=== PATIENT | female | born 1980 | race African-American/Black ===

== ENCOUNTER 2017-03-06 08:06 | Emergency (ER) | payer MEDICAID, OTHER ==
[2017-03-06] MEDS ORDERED: NS 0.9% 1000 ML* 1,000 ML IV ONE (09:59)
[2017-03-06] MEDS ORDERED: HYDROmorphone INJ* 1 MG/ML CARPUJECT SYRINGE IV ONE (09:59)
[2017-03-06] MEDS ORDERED: Ondansetron INJ* 2 MG/ML VIAL IV ONE (09:59)
[2017-03-06 10:30] LABS: Hematocrit 44 % (35-47); Mean Corpuscular HGB Conc 34 g/dl (31-36); Mean Corpuscular Hemoglobin 33 pg (27-31); Mean Corpuscular Volume 97 fL (80-97); Mean Platelet Volume 7 um3 (7.4-10.4); Red Blood Count 4.53 10^6/ul (4.0-5.4); Red Cell Distribution Width 13 % (10.5-15); White Blood Count 10.7 10^3/ul (3.5-10.8)
[2017-03-06 10:40] LABS: Urine Bacteria Absent (Absent); Urine Bilirubin Negative (Negative); Urine Glucose Negative (Negative); Urine Nitrite Negative (Negative)
[2017-03-06 10:49] LABS: ALT 25 U/L (7-52); AST 22 U/L (13-39); Albumin 4.3 g/dL (3.2-5.2); Alkaline Phosphatase 92 U/L (34-104); Anion Gap 7 mmol/L (2-11); BUN/Creatinine Ratio 11.6 (8-20); Blood Urea Nitrogen 10 mg/dL (6-24); C Reactive Protein 6.95 mg/L (< 5.00); CO2 Carbon Dioxide 20 mmol/L (22-32); Calcium 9.3 mg/dL (8.6-10.3); Chloride 107 mmol/L (101-111); EGFR Non-African American 74.7 (>60); Globulin 3.2 g/dL (2-4); Glucose 102 mg/dL (70-100); Lipase 30 U/L (11.0-82.0); Potassium 4.3 mmol/L (3.5-5.0); Sodium 134 mmol/L (133-145); Total Protein 7.5 g/dL (6.4-8.9)
--- NOTE | 2017-03-06 11:05 | RAD ---
HISTORY: Bilateral adnexal pain COMPARISONS: None TECHNIQUE: Multiple transverse and longitudinal ultrasound images were obtained of the pelvis using grayscale and color Doppler imaging using the endovaginal transducer. FINDINGS: UTERUS: The uterus measures 6.8 x 2.8 x 4.2 cm. The uterus is normal in shape, size, contour, and echotexture. ENDOMETRIUM: The endometrial stripe is smooth. The endometrium measures 0.2 cm in thickness. There are echogenic foci along the endometrium. CUL-DE-SAC: There is no free fluid within the cul-de-sac. RIGHT OVARY: The right ovary measures 2.9 x 2.2 x 3.2 cm. Multiple follicles are noted. Normal arterial and venous waveforms are identifiable within the ovary on spectral Doppler imaging. LEFT OVARY: The left ovary measures 2.4 x 1.6 x 2.5 cm. Multiple follicles are noted. Normal arterial and venous waveforms are identifiable within the ovary on spectral Doppler imaging. BLADDER: The bladder is not well visualized. OTHER: None IMPRESSION: SUBENDOMETRIAL CALCIFICATIONS. OTHERWISE UNREMARKABLE ULTRASOUND OF THE PELVIS.
--- NOTE | 2017-03-06 12:28 | RAD ---
CLINICAL HISTORY: Left lower quadrant pain COMPARISON: None TECHNIQUE: Multiple contiguous axial CT scans were obtained of the abdomen and pelvis, without intravenous contrast enhancement. Coronal and sagittal multiplanar reformations are submitted for review. FINDINGS: LUNG BASES: The lung bases are clear. LIVER: The liver is normal in shape, size, contour, and attenuation. BILE DUCTS: There is no intrahepatic or extrahepatic biliary dilatation. GALLBLADDER: The gallbladder is normal, without pericholecystic inflammatory change. PANCREAS: The pancreas is normal, without mass or ductal dilatation. SPLEEN: Normal in size and appearance. UPPER GI TRACT: Evaluation of the gastrointestinal tract is limited by incomplete gastric distention. The upper GI tract is unremarkable. SMALL BOWEL AND MESENTERY: The small bowel is normal in contour, course, and caliber. There is no obstruction or dilatation. COLON: The colon is normal in contour, course, caliber. There is no pericolonic inflammatory change. There is a tubular, vermiform, hollow viscus that is blind ending, and originates from the cecum, consistent with a normal appendix. There is no periappendiceal inflammatory change. This is best seen on axial images 103 through 114 ADRENALS: Normal bilaterally. KIDNEYS: The kidneys are normal in shape, size, contour, and axis. There is no hydronephrosis or nephrolithiasis. BLADDER: The bladder is smooth in contour. PELVIC ORGANS: The uterus and adnexa are grossly normal for technique. AORTA: The aorta is normal. IVC: Unremarkable LYMPH NODES: There is no lymphadenopathy by size criteria. ABDOMINAL WALL: There is a small fat-containing umbilical hernia BONES AND SOFT TISSUES: There are mild diffuse degenerative changes. OTHER: None IMPRESSION: UNREMARKABLE NONCONTRAST CT OF THE ABDOMEN AND PELVIS. NO ACUTE CT PATHOLOGY.
[2017-03-06 13:35] VITALS: BP 117/65
--- NOTE | 2017-03-06 14:39 | ED ---
James Conteh Benjamin, scribed for Stevie Zabala MD on 03/06/17 at 0954 . Abdominal Pain/Female - HPI Summary HPI Summary: 36yo female c/o lower abdominal pain that wraps round her left flank for 2-3 days. Pain is constant but intermittently becomes intense and sharp. Pain is worsen with bending and other movements. Pt denies N/V, fever/chills, vaginal discharge or bleeding and is having normal BM. Pt is on control patch. - History of Current Complaint Chief Complaint: EDAbdPain Stated Complaint: LOWER ABD PAIN Time Seen by Provider: 03/06/17 09:38 Hx Obtained From: Patient Onset/Duration: Sudden Onset, Lasting Days - 2 days, Still Present Timing: Constant Severity Initially: Moderate Severity Currently: Moderate Pain Intensity: 7 Pain Scale Used: 0-10 Numeric Location: Discrete At: RLQ, Discrete At: LLQ Radiates: No Character: Sharp Aggravating Factor(s): Movement Alleviating Factor(s): Nothing Associated Signs and Symptoms: Positive: Negative. Negative: Fever, Vaginal Discharge, Nausea, Vomiting, Diarrhea Allergies/Adverse Reactions: Allergies Allergy/AdvReac Type Severity Reaction Status Date / Time Eggs or Egg-derived Products Allergy Difficulty Verified 03/06/17 08:12 Breathing/Wheezing PMH/Surg Hx/FS Hx/Imm Hx - Immunization History Immunizations Up to Date: Yes Infectious Disease History: No Infectious Disease History: Denies: Traveled Outside the [place] in Last 30 Days - Social History Alcohol Use: Rare Substance Use Type: Reports: None Smoking Status (MU): Light Every Day Tobacco Smoker Review of Systems Constitutional: Negative Negative: Fever, Chills Eyes: Negative ENT: Negative Cardiovascular: Negative Respiratory: Negative Positive: Abdominal Pain. Negative: Vomiting, Nausea Genitourinary: Negative Musculoskeletal: Negative Skin: Negative Neurological: Negative Psychological: Normal All Other Systems Reviewed And Are Negative: Yes Physical Exam Triage Information Reviewed: Yes Vital Signs On Initial Exam: Initial Vitals Temp Pulse Resp BP Pulse Ox 97.3 F 104 20 133/104 100 03/06/17 08:09 03/06/17 08:09 03/06/17 08:09 03/06/17 08:09 03/06/17 08:09 Vital Signs Reviewed: Yes Appearance: Positive: Well-Appearing, No Pain Distress, Well-Nourished Skin: Positive: Warm, Skin Color Reflects Adequate Perfusion, Dry Head/Face: Positive: Normal Head/Face Inspection Eyes: Positive: Normal, EOMI, WINSOME ENT: Positive: Normal ENT inspection, Hearing grossly normal Neck: Positive: Supple, Nontender Respiratory/Lung Sounds: Positive: Clear to Auscultation, Breath Sounds Present Cardiovascular: Positive: RRR, Pulses are Symmetrical in both Upper and Lower Extremities. Negative: Murmur Abdomen Description: Positive: Soft. Negative: Nontender - bilateral LQ tenderness Bowel Sounds: Positive: Present Musculoskeletal: Positive: Strength/ROM Intact Neurological: Positive: Sensory/Motor Intact, Alert, Oriented to Person Place, Time Psychiatric: Positive: Affect/Mood Appropriate - [place] Coma Scale Coma Scale Total: 15 Diagnostics - Vital Signs Vital Signs Temp Pulse Resp BP Pulse Ox 03/06/17 08:09 97.3 F 104 20 133/104 100 - Laboratory Lab Results: Lab Results 03/06/17 03/06/17 03/06/17 Range/Units 10:10 10:10 10:10 WBC 10.7 (3.5-10.8) 10^3/ul RBC 4.53 (4.0-5.4) 10^6/ul Hgb 15.0 (12.0-16.0) g/dl Hct 44 (35-47) % MCV 97 (80-97) fL MCH 33 H (27-31) pg MCHC 34 (31-36) g/dl RDW 13 (10.5-15) % Plt Count 366 (150-450) 10^3/ul MPV 7 L (7.4-10.4) um3 Neut % (Auto) 47.5 (38-83) % Lymph % (Auto) 43.8 (25-47) % [place] % (Auto) 6.5 (1-9) % Eos % (Auto) 0.8 (0-6) % Baso % (Auto) 1.4 (0-2) % Absolute Neuts (auto) 5.1 (1.5-7.7) 10^3/ul Absolute Lymphs (auto) 4.7 (1.0-4.8) 10^3/ul Absolute Monos (auto) 0.7 (0-0.8) 10^3/ul Absolute Eos (auto) 0.1 (0-0.6) 10^3/ul Absolute Basos (auto) 0.1 (0-0.2) 10^3/ul Absolute Nucleated RBC 0 10^3/ul Nucleated RBC % 0 Sodium 134 (133-145) mmol/L Potassium 4.3 (3.5-5.0) mmol/L Chloride 107 (101-111) mmol/L Carbon Dioxide 20 L (22-32) mmol/L Anion Gap 7 (2-11) mmol/L BUN 10 (6-24) mg/dL Creatinine 0.86 (0.51-0.95) mg/dL Est GFR ( Amer) 96.0 (>60) Est GFR (Non-Af Amer) 74.7 (>60) BUN/Creatinine Ratio 11.6 (8-20) Glucose 102 H (70-100) mg/dL Lactic Acid 1.0 (0.5-2.0) mmol/L Calcium 9.3 (8.6-10.3) mg/dL Total Bilirubin 0.40 (0.2-1.0) mg/dL AST 22 (13-39) U/L ALT 25 (7-52) U/L Alkaline Phosphatase 92 (34-104) U/L C-Reactive Protein 6.95 H (< 5.00) mg/L Total Protein 7.5 (6.4-8.9) g/dL Albumin 4.3 (3.2-5.2) g/dL Globulin 3.2 (2-4) g/dL Albumin/Globulin Ratio 1.3 (1-3) Lipase 30 (11.0-82.0) U/L Beta HCG, Quant < 0.60 mIU/mL Urine Color Urine Appearance Urine pH (5-9) Ur Specific [place] (1.010-1.030) Urine Protein (Negative) Urine Ketones (Negative) Urine Blood (Negative) Urine Nitrate (Negative) Urine Bilirubin (Negative) Urine Urobilinogen (Negative) Ur Leukocyte Esterase (Negative) Urine WBC (Auto) (Absent) Urine RBC (Auto) (Absent) Ur Squamous Epith Cells (Absent) Urine Bacteria (Absent) Urine Glucose (Negative) 03/06/17 Range/Units 10:10 WBC (3.5-10.8) 10^3/ul RBC (4.0-5.4) 10^6/ul Hgb (12.0-16.0) g/dl Hct (35-47) % MCV (80-97) fL MCH (27-31) pg MCHC (31-36) g/dl RDW (10.5-15) % Plt Count (150-450) 10^3/ul MPV (7.4-10.4) um3 Neut % (Auto) (38-83) % Lymph % (Auto) (25-47) % [place] % (Auto) (1-9) % Eos % (Auto) (0-6) % Baso % (Auto) (0-2) % Absolute Neuts (auto) (1.5-7.7) 10^3/ul Absolute Lymphs (auto) (1.0-4.8) 10^3/ul Absolute Monos (auto) (0-0.8) 10^3/ul Absolute Eos (auto) (0-0.6) 10^3/ul Absolute Basos (auto) (0-0.2) 10^3/ul Absolute Nucleated RBC 10^3/ul Nucleated RBC % Sodium (133-145) mmol/L Potassium (3.5-5.0) mmol/L Chloride (101-111) mmol/L Carbon Dioxide (22-32) mmol/L Anion Gap (2-11) mmol/L BUN (6-24) mg/dL Creatinine (0.51-0.95) mg/dL Est GFR ( Amer) (>60) Est GFR (Non-Af Amer) (>60) BUN/Creatinine Ratio (8-20) Glucose (70-100) mg/dL Lactic Acid (0.5-2.0) mmol/L Calcium (8.6-10.3) mg/dL Total Bilirubin (0.2-1.0) mg/dL AST (13-39) U/L ALT (7-52) U/L Alkaline Phosphatase (34-104) U/L C-Reactive Protein (< 5.00) mg/L Total Protein (6.4-8.9) g/dL Albumin (3.2-5.2) g/dL Globulin (2-4) g/dL Albumin/Globulin Ratio (1-3) Lipase (11.0-82.0) U/L Beta HCG, Quant mIU/mL Urine Color Yellow Urine Appearance Clear Urine pH 5.0 (5-9) Ur Specific [place] 1.021 (1.010-1.030) Urine Protein Negative (Negative) Urine Ketones Negative (Negative) Urine Blood 2+ H (Negative) Urine Nitrate Negative (Negative) Urine Bilirubin Negative (Negative) Urine Urobilinogen Negative (Negative) Ur Leukocyte Esterase Negative (Negative) Urine WBC (Auto) Trace(0-5/hpf) (Absent) Urine RBC (Auto) 2+(6-10/hpf) H (Absent) Ur Squamous Epith Cells Present H (Absent) Urine Bacteria Absent (Absent) Urine Glucose Negative (Negative) Result Diagrams: 03/06/17 10:10 03/06/17 10:10 Lab Statement: Any lab studies that have been ordered have been reviewed, and results considered in the medical decision making process. - CT CT A/P WO CT Interpretation: No Acute Changes - IMPRESSION: UNREMARKABLE NONCONTRAST CT OF THE ABDOMEN AND PELVIS. NO ACUTE CT PATHOLOGY. CT Interpretation Completed By: Radiologist - ED physician has reviewed this radiology report and agrees. - Additional Comments Diagnostic Additional Comments: US TRANSVAGINAL - IMPRESSION: SUBENDOMETRIAL CALCIFICATIONS. OTHERWISE UNREMARKABLE ULTRASOUND OF THE PELVIS. ED physician has reviewed this radiology report and agrees. Re-Evaluation - Re-Evaluation First Eval Re-Evaluation Time: 11:36 Comment: Reviewed pts lab and imaging results with the pt. Abdominal Pain Fem Course/Dx - Course Course Of Treatment: Ms. Cohen presented with a few days of left flank pain. Her exam revealed mild LLQ tenderness. Labs and pelvic U/S were negative but she continued with pain and had some microscopic blood in her urine so CT was obtained and also negative. I offered a pelvic exam and she decided to try symptomatic treatment and F/U. - Diagnoses Provider Diagnoses: Abdominal pain Discharge - Discharge Plan Condition: Stable Disposition: HOME Prescriptions: HYDROcodone/ACETAMIN 5-325 MG* [[place] 5-325 TAB*] 1 tab PO Q6H PRN #20 tab MDD 4 PRN Reason: Pain Patient Education Materials: Abdominal Pain (ED) Referrals: Morro POLLOCK,Tom Saini [Primary Care Provider] - The documentation as recorded by the James camilo Benjamin accurately reflects the service I personally performed and the decisions made by me, Stevie Zabala MD.
== END 2017-03-06 13:35 | disposition home or self-care (01) ==
LOC: ED 08:06
DX: R10.30 Lower abdominal pain, unspecified (principal)
CPT/HCPCS: 36415; 74176; 76830; 80053; 81003; 81015; 83605; 83690; 84702; 85025; 86140; 96374; 96375; 99282; J1170; J2405

== ENCOUNTER 2018-10-26 13:24 | Emergency (ER) | payer SELFPAY ==
[2018-10-26] MEDS ORDERED: Lidocaine 2% MPF* 2 ML VIAL ONE (14:05)
--- NOTE | 2018-10-26 14:08 | ED ---
Laceration/Wound HPI - HPI Summary HPI Summary: Pt is a 38 y/o F presenting to the ED with a chief complaint of a laceration of her L pinky finger. She was cutting onions at around 1200 when her finger slipped and she sliced through her pinky. She reports the laceration. She denies fever. - History of Current Complaint Stated Complaint: FINGER LAC PER PT Time Seen by Provider: 10/26/18 13:57 Hx Obtained From: Patient Mechanism of Injury: Sharp/Blunt Trauma Onset/Duration: Sudden Onset, Lasting Hours, Still Present Aggravating: Movement Alleviating: Compression Timing: Constant Onset Severity: Moderate Current Severity: Moderate Pain Intensity: 6 Pain Scale Used: 0-10 Numeric Associated Signs & Symptoms: Pain - Allergy/Home Medications Allergies/Adverse Reactions: Allergies Allergy/AdvReac Type Severity Reaction Status Date / Time Egg Derived Allergy Difficulty Verified 10/26/18 13:55 Breathing/Wheezing PMH/Surg Hx/FS Hx/Imm Hx Previously Healthy: Yes Endocrine/Hematology History: Denies: Hx Diabetes Cardiovascular History: Denies: Hx Hypertension - Surgical History Surgery Procedure, Year, and Place: right wrist ganglion cyst, left ankle, knee surgery - Immunization History Date of Tetanus Vaccine: 2009 Infectious Disease History: No Infectious Disease History: Denies: Traveled Outside the [place] in Last 30 Days - Family History Known Family History: Negative: Cardiac Disease - Social History Alcohol Use: Rare Hx Substance Use: No Substance Use Type: Reports: None Hx Tobacco Use: Yes Smoking Status (MU): Light Every Day Tobacco Smoker Review of Systems Negative: Fever Positive: Other - L pinky finger laceration All Other Systems Reviewed And Are Negative: Yes Physical Exam - Summary Physical Exam Summary: Appearance: Well appearing, no pain distress Skin: warm, dry, laceration of tip of L distal pinky finger without active bleeding. Head/face: normal Eyes: EOMI, WINSOME ENT: normal Neck: supple, non-tender Respiratory: CTA, breath sounds present Cardiovascular: RRR, pulses symmetrical Abdomen: non-tender, soft Musculoskeletal: normal, strength/ROM intact Neuro: normal, sensory motor intact, A&Ox3 Triage Information Reviewed: Yes Vital Signs On Initial Exam: Initial Vitals Temp Pulse Resp BP Pulse Ox 98.0 F 68 20 167/88 99 10/26/18 13:25 10/26/18 13:25 10/26/18 13:25 10/26/18 13:25 10/26/18 13:25 Vital Signs Reviewed: Yes Diagnostics - Vital Signs Vital Signs Temp Pulse Resp BP Pulse Ox 10/26/18 13:25 98.0 F 68 20 167/88 99 - Laboratory Lab Statement: Any lab studies that have been ordered have been reviewed, and results considered in the medical decision making process. Laceration Repair Course/Dx - Course Course Of Treatment: Pt is a 38 y/o F presenting to the ED with a chief complaint of a laceration of her L pinky finger. She was cutting onions at around 1200 when her finger slipped and she sliced through her pinky. She reports the laceration. She denies fever. Discharge - Sign-Out/Discharge Documenting (check all that apply): Patient Departure - Discharge Plan Referrals: Morro POLLOCK,Tom Saini [Primary Care Provider] - - Attestation Statements Document Initiated by Scribe: Yes Documenting Scribe: Eileen Arrington Provider For Whom Scribe is Documenting (Include Credential): Brandon Villarreal MD. Scribe Attestation: IEileen, scribed for Brandon Villarreal MD. on 10/26/18 at 1408.
[2018-10-26] MEDS ORDERED: Lidocaine 2.5%/Prilocain 2.5%* 5 GM TUBE TOPICAL ONE (14:14)
[2018-10-26] MEDS ORDERED: Tetan/Diph/Pertus SYR(Tdap)* 0.5 ML SYR(BOOSTRIX) use SYR IM ONE (15:17)
--- NOTE | 2018-10-26 15:39 | ED ---
Laceration/Wound HPI - HPI Summary HPI Summary: Pt is a 38 y/o F presenting to the ED with a chief complaint of a laceration of her L pinky finger. She was cutting onions at around 1200 when her finger slipped and she sliced through her pinky. She reports the laceration. She denies fever. - History of Current Complaint Stated Complaint: FINGER LAC PER PT Time Seen by Provider: 10/26/18 13:57 Hx Obtained From: Patient Mechanism of Injury: Sharp/Blunt Trauma Onset/Duration: Sudden Onset, Lasting Hours, Still Present Aggravating: Movement Alleviating: Compression Timing: Constant Onset Severity: Moderate Current Severity: Moderate Pain Intensity: 6 Pain Scale Used: 0-10 Numeric Associated Signs & Symptoms: Pain - Allergy/Home Medications Allergies/Adverse Reactions: Allergies Allergy/AdvReac Type Severity Reaction Status Date / Time Egg Derived Allergy Difficulty Verified 10/26/18 13:55 Breathing/Wheezing PMH/Surg Hx/FS Hx/Imm Hx Endocrine/Hematology History: Denies: Hx Diabetes Cardiovascular History: Denies: Hx Hypertension - Surgical History Surgery Procedure, Year, and Place: right wrist ganglion cyst, left ankle, knee surgery - Immunization History Date of Tetanus Vaccine: 2009 Infectious Disease History: No Infectious Disease History: Denies: Traveled Outside the [place] in Last 30 Days - Family History Known Family History: Negative: Cardiac Disease - Social History Alcohol Use: Rare Hx Substance Use: No Substance Use Type: Reports: None Hx Tobacco Use: Yes Smoking Status (MU): Light Every Day Tobacco Smoker Review of Systems Negative: Fever Positive: Other - L pinky finger laceration All Other Systems Reviewed And Are Negative: Yes Physical Exam - Summary Physical Exam Summary: Appearance: Well appearing, no pain distress Skin: warm, dry, laceration of tip of L distal pinky finger without active bleeding. Head/face: normal Eyes: EOMI, WINSOME ENT: normal Neck: supple, non-tender Respiratory: CTA, breath sounds present Cardiovascular: RRR, pulses symmetrical Abdomen: non-tender, soft Musculoskeletal: normal, strength/ROM intact Neuro: normal, sensory motor intact, A&Ox3 Triage Information Reviewed: Yes Vital Signs On Initial Exam: Initial Vitals Temp Pulse Resp BP Pulse Ox 98.0 F 68 20 167/88 99 10/26/18 13:25 10/26/18 13:25 10/26/18 13:25 10/26/18 13:25 10/26/18 13:25 Vital Signs Reviewed: Yes Procedures - Laceration/Wound Repair 1 Location: upper extremity Description: Irregular Anesthesia: Local Betadine Prep?: No Laceration/Wound Explored: clean Suture Type: Prolene Number of Sutures: 4 Layer Closure?: No Sterile Dressing Applied?: Yes Diagnostics - Vital Signs Vital Signs Temp Pulse Resp BP Pulse Ox 10/26/18 13:25 98.0 F 68 20 167/88 99 - Laboratory Lab Statement: Any lab studies that have been ordered have been reviewed, and results considered in the medical decision making process. Laceration Repair Course/Dx - Course Course Of Treatment: Pt is a 38 y/o F presenting to the ED with a chief complaint of a laceration of her L pinky finger. She was cutting onions at around 1200 when her finger slipped and she sliced through her pinky. She reports the laceration. She denies fever. Digital block to left little finger with good effect. Bleeding is well-controlled. 4 sutures placed using 4-0 Prolene to the distal tip. One suture placed through the nail. Occlusive gauze wrapped. Tube gauze wrapped. Patient is given prescription for hydrocodone for discomfort. She offers no other complaints at this time. Tetanus is updated. - Clinical Impression Provider Diagnoses: Laceration Discharge - Sign-Out/Discharge Documenting (check all that apply): Patient Departure Patient Received Moderate/Deep Sedation with Procedure: No - Discharge Plan Condition: Stable Disposition: HOME Prescriptions: Hydrocodone/Acetamin 10/325(NF [[place] 10/325 (NF)] 1 tab PO Q6H #12 tab MDD 4 HYDROcodone/ACETAMIN 5-325 MG* [[place] 5-325 TAB*] 1 tab PO Q4H PRN #10 tab MDD 8 PRN Reason: Pain Patient Education Materials: Care For Your Stitches (ED), Laceration (ED) Referrals: Morro POLLOCK,Tom Saini [Primary Care Provider] - Additional Instructions: Suture removal in 5-6 days Hydrocodone/acetaminophen 1-2 tabs up to every 6 hours for pain Ibuprofen 600mg three times daily (on opposite schedule of pain medication) Keep the bandage applied x 24 hours Keep the area clean with soap and water daily Leave open to air after 24-48 hours as much as possible - Billing Disposition and Condition Condition: STABLE Disposition: Home
[2018-10-26 15:45] VITALS: BP 144/109
== END 2018-10-26 15:44 | disposition home or self-care (01) ==
LOC: ED 13:24
DX: S61.217A Laceration without foreign body of left little finger without damage to nail, initial encounter (principal); W26.9XXA Contact with unspecified sharp object(s), initial encounter; Y93.G1 Activity, food preparation and clean up; Y92.9 Unspecified place or not applicable; Z23 Encounter for immunization; F17.200 Nicotine dependence, unspecified, uncomplicated
CPT/HCPCS: 12001; 90471; 90715; 99282; A9270-GY